=== PATIENT | male | born 1955 | race African-American/Black ===

== ENCOUNTER 2020-07-27 15:35 | Emergency (ER) | payer MEDICARE, OTHER ==
[~2020-07-27] VITALS: Ht 182.9 cm; Wt 80.0 kg
--- NOTE | 2020-07-27 16:53 | NUR ---
first contact with pt. cc of right thumb lac aftering "crushing my hand using a wood spitter". bleeding contolled with towel.
[2020-07-27] MEDS ORDERED: LIDOCAINE-MPF 1%, 5ML INFIL ONE (17:00)
[2020-07-27] MEDS ORDERED: LIDOCAINE-MPF 1%, 5ML ONE (17:15)
[2020-07-27 18:18] VITALS: BP 153/65
== END 2020-07-27 18:20 | disposition home or self-care (01) ==
LOC: ED 15:45
DX: S61.011A Laceration without foreign body of right thumb without damage to nail, initial encounter (principal); X58.XXXA Exposure to other specified factors, initial encounter; Y93.89 Activity, other specified; Y92.009 Unspecified place in unspecified non-institutional (private) residence as the place of occurrence of the external cause; Y99.8 Other external cause status
CPT/HCPCS: 12002; 99283